=== PATIENT | female | born 2000 | race Two or more races ===

== ENCOUNTER → 2024-03-15 | Outpatient (REF) | payer OTHER | LOC: M SFHCWAGY 12:34 | PROVIDERS: ATTEND Obstetrics & Gynecology | DX: Z36.89 Encounter for other specified antenatal screening (principal); Z3A.36 36 weeks gestation of pregnancy ==

== ENCOUNTER 2024-04-09 06:06 | Inpatient (IN) | payer OTHER ==
[2024-04-09] VITALS (10 sets, daily range): BP systolic 117–145; BP diastolic 66–82; O2SAT 98–99
[~2024-04-09] VITALS: Ht 167.6 cm; Wt 85.9 kg
[2024-04-09] MEDS ORDERED: IRON27TA2 PO (07:07)
[2024-04-09] MEDS ORDERED: HOME MED LIST COMPLETE! XX SCH (07:10)
[2024-04-09 07:12] LABS: HEMATOCRIT 40.1 % (36.0-47.0); MEAN CORPUSCULAR HEMOGLOBIN 28.1 pg (27.0-33.0); MEAN CORPUSCULAR HGB CONC 32.4 g/dl (32.0-36.5); MEAN CORPUSCULAR VOLUME 86.8 fl (80.0-96.0); PLATELET COUNT, AUTOMATED 129 10^3/uL (150-450); RED BLOOD COUNT 4.62 10^6/uL (4.00-5.40); WHITE BLOOD COUNT 7.5 10^3/uL (4.0-10.0)
[2024-04-09 08:02] LABS: HEPATITIS B SURFACE ANTIGEN NEGATIVE (NEGATIVE)
[2024-04-09] MEDS ORDERED: LIDOCAINE 1% MDV 20ML VIAL INFIL PRN (08:10)
[2024-04-09] MEDS ORDERED: OXYTOCIN DRIP 30 UNITS in IV 1 EA IV PRN (08:10)
[2024-04-09 08:23] LABS: HEPATITIS C VIRUS ABY INDEX 0.02 INDEX (<0.8)
[2024-04-09] MEDS ORDERED: OXYTOCIN 30UNITS IN 0.9% NaCl 500ML IV BAG As Ordered ONE (08:26)
[2024-04-09] MEDS ORDERED: ACETAMINOPHEN 325 MG TAB PO PRN (09:15)
[2024-04-09] MEDS ORDERED: METHYLERGONOVINE MALEATE 0.2 MG TAB PO PRN (09:15)
[2024-04-09] MEDS ORDERED: RHOGAM 300MCG (1500IU) INJ IM SCH (09:15)
[2024-04-09] MEDS: IBUPROFEN 800 MG TAB PO PRN (10:55)
[2024-04-09] MEDS: METHYLERGONOVINE MALEATE 0.2MG/ML 1ML VIAL IM ONE (11:08)
[2024-04-09] MEDS: ACETAMINOPHEN 500 MG TAB PO PRN (20:22)
[2024-04-10 06:10] VITALS: BP 105/65; O2SAT 100
[2024-04-10] MEDS: PRENATAL VITAMINS CHEWABLE TABLET PO SCH (08:25)
[2024-04-10 18:00] VITALS: BP 117/79; O2SAT 100
[2024-04-10] MEDS: DOCUSATE SODIUM 100MG CAPSULE PO PRN (20:10)
[2024-04-10] MEDS: DIBUCAINE 1% OINTMENT 30GM TOP PRN (20:42)
[2024-04-10 22:09] VITALS: BP 128/76; O2SAT 100
[2024-04-11 01:54] VITALS: BP 106/58; O2SAT 99
[2024-04-11 05:57] VITALS: BP 112/62; O2SAT 99
[2024-04-11] MEDS: IBUPROFEN 600MG TAB PO PRN (07:52)
[2024-04-11] MEDS ORDERED: ACET-683 PO (08:01)
[2024-04-11] MEDS ORDERED: IBUP80TA PO (08:01)
[2024-04-11] MEDS ORDERED: MEASLES,MUMPS,RUBELLA VACCINE INJ (MMR-II) SC.IMMUN ONE (09:00)
[2024-04-11 10:00] VITALS: BP 119/68; O2SAT 99
== END 2024-04-11 15:45 | disposition home or self-care (01) | DRG 807 ==
LOC: M LDO 06:06 → M LDI 06:22 → M OBS 12:12
PROVIDERS: ADMIT Obstetrics & Gynecology; ATTEND Obstetrics & Gynecology
PROC: 10E0XZZ Delivery of Products of Conception, External Approach (ICD-10-PCS; principal; 2024-04-09)
DX: O99.02 Anemia complicating childbirth (principal); Z37.0 Single live birth; D64.9 Anemia, unspecified; Z3A.40 40 weeks gestation of pregnancy; O48.0 Post-term pregnancy; O69.82X0 Labor and delivery complicated by other cord entanglement, without compression, not applicable or unspecified